=== PATIENT | female | born 1995 | race African-American/Black ===

== ENCOUNTER 2016-07-31 00:48 | Emergency (ER) | payer OTHER ==
[~2016-07-31] VITALS: Ht 170.2 cm; Wt 97.0 kg
[~2016-07-31 00:48] MED LIST: ANUSOL1 SUPP PR; AUGMENTIN875 MG PO; BACTRIM,SEPT1 TABLET PO; KEFLEX500 MG PO; MOTRIN600 MG PO; MOTRIN800 MG PO; NAPROSYN500 MG PO; NO HOME MEDS; PEN-VEE K,VEET500 MG PO; PREDNISONE20 MG PO; PRENATAL TABLE1 EAC3 PO; TESSALON PERLE100 MG PO; TRAMADOL HCL50 MG PO; ZOFRAN4 MG PO
[2016-07-31 02:29] LABS: INTERNAL CONTROL VALID? YES
[2016-07-31] MEDS ORDERED: ULTRACET1 TABLET PO (02:34)
[2016-07-31 02:55] VITALS: BP 134/71
== END 2016-07-31 02:56 | disposition home or self-care (01) ==
LOC: EME 00:48
PROVIDERS: Physician Assistant
DX: G89.29 Other chronic pain (principal); N91.1 Secondary amenorrhea
CPT/HCPCS: 84703; 99281; 99283

== ENCOUNTER 2017-03-27 14:23 | Emergency (ER) | payer OTHER ==
[~2017-03-27] VITALS: Ht 170.2 cm; Wt 87.2 kg
[~2017-03-27 14:23] MED LIST changes: +ULTRACET1 TABLET PO
[2017-03-27 14:52] VITALS: BP 150/92
[2017-03-27 15:32] LABS: HEMATOCRIT 40.1 % (36.0-46.0); MCH 29.2 PG (29.0-34.0); MCHC 32.9 G/DL (30.0-36.0); MCV 88.7 FL (83-99); RBC DIS.WIDTH-SD 45.5 % (39-53); RED BLOOD COUNT 4.52 M/uL (3.80-5.20)
[2017-03-27 16:05] LABS: MEAN PLAT.VOLUME 12.1 uM^3 (9.5-12.4); PLAT.SUFFICIENCY ADEQUATE; PLATELET COUNT 187 K/uL (156-360)
== END 2017-03-27 15:18 | disposition left against medical advice (07) ==
LOC: EME 14:23
DX: R06.02 Shortness of breath (principal); R05 Cough; R06.2 Wheezing; M54.5 Low back pain; Z53.21 Procedure and treatment not carried out due to patient leaving prior to being seen by health care provider
CPT/HCPCS: 80048; 85027

== ENCOUNTER 2017-08-02 21:16 | Inpatient (IN) | payer OTHER ==
[~2017-08-02] VITALS: Ht 170.2 cm; Wt 75.9 kg
[2017-08-02 23:11] LABS: HEMATOCRIT 36.6 % (36.0-46.0); HEMOGLOBIN 12.2 G/DL (11.9-15.5); MCH 29.2 PG (29.0-34.0); MCHC 33.3 G/DL (30.0-36.0); MCV 87.6 FL (83-99); PLATELET COUNT 315 K/uL (156-360); RBC DIS.WIDTH-CV 13.4 % (11.8-14.6); RBC DIS.WIDTH-SD 43.2 % (39-53); RED BLOOD COUNT 4.18 M/uL (3.80-5.20)
[2017-08-02 23:12] LABS: AMPHETAMINE NEGATIVE (500 ng/mL); BARBITURATES NEGATIVE (200 ng/mL); BENZODIAZEPINES NEGATIVE (150 ng/mL); BUPRENORPHINE NEGATIVE (10 ng/mL); COCAINE PRESUMPTIVE POSITIVE (150 ng/mL); METHADONE NEGATIVE (200 ng/mL); METHAMPHETAMINE NEGATIVE (500 ng/mL); OPIATES (MORPHINE) NEGATIVE (100 ng/mL); OXYCODONE NEGATIVE (100 ng/mL); PHENCYCLIDINE NEGATIVE (25 ng/mL); PROPOXYPHENE NEGATIVE (300 ng/mL); THC CANNABINOIDS PRESUMPTIVE POSITIVE (50 ng/mL); TRICYCLIC ANTIDEPRESSANTS NEGATIVE (300 ng/mL)
[2017-08-02 23:19] LABS: ALBUMIN 3.8 g/dL (3.2-4.8); CHLORIDE 107 mEq/L (99-109); SODIUM 138 mEq/L (136-147)
[2017-08-02 23:21] LABS: GLUCOSE 92 mg/dL (70-99); TOTAL PROTEIN 7.5 g/dL (6.4-8.3)
[2017-08-02 23:25] LABS: CREATININE 0.7 mg/dL (0.6-1.3); GFR ESTIMATE (CALCULATED) > 59 mL/min/
[2017-08-02 23:26] LABS: ALKALINE PHOSPHATASE 81 IU/L (3-129)
[2017-08-02 23:27] LABS: AST (GOT) 29 IU/L (2-34); UREA NITROGEN (BUN) 7 mg/dL (9-23)
[2017-08-02 23:28] LABS: SALICYLATE < 5.0 MG/DL (15-30)
[2017-08-02 23:29] LABS: ACETAMINOPHEN (TYLENOL) < 10 mcg/mL (10-30); ALT (GPT) 24 IU/L (3-49)
[2017-08-02 23:35] LABS: QUANTITATIVE HCG < 4.0 MIU/ML
[2017-08-02 23:53] LABS: TOTAL BILIRUBIN 0.5 MG/DL (0.0-1.0)
[2017-08-03 00:01] LABS: SERUM ETHYL ALCOHOL < 10 mg/dL
[2017-08-03 02:46] VITALS: BP 138/78
[2017-08-03 07:57] VITALS: BP 142/83
== END 2017-08-03 11:43 | disposition home or self-care (01) | DRG 897 ==
LOC: EME 21:16 → EDOF 08-03 00:54 → 1WEST 08-03 02:20 → ENRESERV 08-03 02:20 → 1WEST 08-03 11:43
PROVIDERS: Nurse Practitioner Family
DX: F11.23 Opioid dependence with withdrawal (principal); R45.851 Suicidal ideations; F43.21 Adjustment disorder with depressed mood; F19.94 Other psychoactive substance use, unspecified with psychoactive substance-induced mood disorder; F90.9 Attention-deficit hyperactivity disorder, unspecified type; F17.210 Nicotine dependence, cigarettes, uncomplicated; F41.9 Anxiety disorder, unspecified; Z56.0 Unemployment, unspecified
CPT/HCPCS: 80053; 84702; 84999; 85027; 90839; 93005; 99281; 99284; G0480

== ENCOUNTER 2017-09-14 03:21 | Emergency (ER) | payer OTHER ==
[~2017-09-14] VITALS: Ht 165.1 cm; Wt 73.2 kg
[2017-09-14 03:22] VITALS: BP 122/59
== END 2017-09-14 04:00 | disposition left against medical advice (07) ==
LOC: EME 03:21
DX: R22.1 Localized swelling, mass and lump, neck (principal); Z53.21 Procedure and treatment not carried out due to patient leaving prior to being seen by health care provider

== ENCOUNTER 2017-12-02 18:15 | Emergency (ER) | payer OTHER ==
[~2017-12-02] VITALS: Ht 170.2 cm; Wt 75.5 kg
[2017-12-02 19:44] LABS: HEMATOCRIT 42.1 % (36.0-46.0); HEMOGLOBIN 13.5 G/DL (11.9-15.5); MCHC 32.1 G/DL (30.0-36.0); MCV 87.2 FL (83-99); RBC DIS.WIDTH-CV 14.8 % (11.8-14.6); RBC DIS.WIDTH-SD 47.4 % (39-53); RED BLOOD COUNT 4.83 M/uL (3.80-5.20); WHITE BLOOD COUNT 6.5 K/uL (4.1-10.2)
[2017-12-02 19:56] LABS: ALBUMIN 3.8 g/dL (3.2-4.8)
[2017-12-02 19:57] LABS: CHLORIDE 102 mEq/L (99-109); POTASSIUM 4.5 mEq/L (3.7-5.4); SODIUM 138 mEq/L (136-147)
[2017-12-02 19:59] LABS: GLUCOSE 107 mg/dL (70-99); TOTAL PROTEIN 7.9 g/dL (6.4-8.3)
[2017-12-02 20:01] LABS: TOTAL BILIRUBIN 0.9 mg/dL (0.0-1.0)
[2017-12-02 20:02] LABS: ALKALINE PHOSPHATASE 99 IU/L (3-129); CREATININE 0.8 mg/dL (0.6-1.3); GFR ESTIMATE (CALCULATED) > 59 mL/min/
[2017-12-02 20:04] LABS: AST (GOT) 45 IU/L (2-34); UREA NITROGEN (BUN) 8 mg/dL (9-23)
[2017-12-02 20:05] LABS: ALT (GPT) 31 IU/L (3-49)
[2017-12-02 20:11] LABS: QUANTITATIVE HCG < 4.0 MIU/ML
[2017-12-02 20:47] LABS: PLAT.SUFFICIENCY ADEQUATE; PLATELET COUNT 216 K/uL (156-360)
[2017-12-03] MEDS ORDERED: NORCO 5/3251 TABLET PO (00:14)
[2017-12-03] MEDS ORDERED: MOTRIN600 MG PO (00:14)
[2017-12-03 04:15] VITALS: BP 14/78
== END 2017-12-03 04:15 | disposition home or self-care (01) ==
LOC: EME 18:15
PROVIDERS: Physician Assistant
PROC: 0H9EXZZ Drainage of Left Lower Arm Skin, External Approach (ICD-10-PCS; principal; 2017-12-02)
DX: L02.414 Cutaneous abscess of left upper limb (principal); L03.114 Cellulitis of left upper limb; I80.8 Phlebitis and thrombophlebitis of other sites; F32.9 Major depressive disorder, single episode, unspecified; F90.9 Attention-deficit hyperactivity disorder, unspecified type; F41.9 Anxiety disorder, unspecified
CPT/HCPCS: 73090; 80053; 83605; 84702; 85027; 87040; 87070; 87075; 87205; 93971; 99281; 99285; J0696; J1885; J7030